=== PATIENT | female | born 2000 | race Caucasian/White ===

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

== ENCOUNTER → 2020-11-27 | Outpatient (CLI) | payer OTHER, BC ==
[~2020-11-27] MED LIST: ALLERGY SHOTS INJ; ATIVAN0.5 MG PO; BENTYL 10MG CAP10 MG PO; BIOTIN1 MG PO; BUSPIRONE HCL15 MG PO; CETIRIZINE HCL10 MG PO; COLACE100 MG PO; DAILY MULTIPLE1 EAC1 PO; ECOTRIN81 MG PO; ESTARYLLA 0.251 EACH PO; EXCEDRIN MIGRA1 EACH PO; HYDROXYZINE PO; IBU600 MG PO; IMITREX100 MG PO; JUNEL BIRTH CONTROL PO; LEVOTHYROXINE25 MC1 PO; LEXAPRO20 MG PO; LEXAPRO5 MG PO; MELATONIN3 MG PO; NAPROXEN500 MG PO; NORCO 5-325 TA1 EACH PO; NURTEC ODT75 MG PO; PEPCID40 MG PO; PERCOCET 7.5-31 EACH PO; PROTONIX40 MG PO; SINGULAIR10 MG PO; STOOL SOFTENER250 MG PO; TOPAMAX25 MG PO; TRAZODONE HCL50 MG PO; WELLBUTRIN SR150 MG PO; ZOFRAN 4 MG TAB4 MG PO; ZOFRAN4 MG PO
[2020-11-28 10:14] LABS: HBSAG SCREEN Negative (Negative); HCV AB <0.1 (0.0-0.9); HEP B CORE AB, TOT Negative (Negative)
[2020-11-28 11:14] LABS: RHEUMATOID ARTHRITIS FACTOR <10.0 IU/mL (0.0-13.9)
[2020-11-29 00:09] LABS: CCP ANTIBODIES IGG/IGA 7 units (0-19)
== END ==
LOC: LAB 12:53
PROVIDERS: Internal Medicine
DX: D89.89 Other specified disorders involving the immune mechanism, not elsewhere classified (principal); M25.50 Pain in unspecified joint; Z11.59 Encounter for screening for other viral diseases; M79.10 Myalgia, unspecified site
CPT/HCPCS: 36415; 82085; 82550; 83520; 85652; 86140; 86200; 86431; 86704; 86803; 87340

== ENCOUNTER → 2020-12-30 | Outpatient (CLI) | payer BC, OTHER | LOC: RAD 15:38 | DX: M79.642 Pain in left hand (principal); M79.641 Pain in right hand; M25.531 Pain in right wrist; M25.532 Pain in left wrist; M25.571 Pain in right ankle and joints of right foot; M25.572 Pain in left ankle and joints of left foot | CPT/HCPCS: 73110; 73130; 73610 ==

== ENCOUNTER → 2021-08-19 | Outpatient (CLI) | payer OTHER | LOC: KOH-I 13:00 | DX: M25.571 Pain in right ankle and joints of right foot (principal); M79.671 Pain in right foot | CPT/HCPCS: 73610; 73630 ==

== ENCOUNTER → 2021-11-13 | Outpatient (CLI) | payer OTHER | LOC: KOH-I 13:36 | DX: S09.90XA Unspecified injury of head, initial encounter (principal); W19.XXXA Unspecified fall, initial encounter | CPT/HCPCS: 70450 ==